=== PATIENT | male | born 1975 | race Caucasian/White ===

== ENCOUNTER 2019-05-11 16:58 | Emergency (ER) | payer BC ==
[2019-05-11 17:23] VITALS: BP 144/89
--- NOTE | 2019-05-11 18:18 | UC ---
Lower Extremity/Ankle HPI - HPI Summary HPI Summary: 44-year-old male comes in with a chief complaint of left foot pain. This started several days ago. Pain is primarily in the mid and distal foot on the dorsum along the first and second metatarsals and in the midfoot. Pain is worse with plantar flexion of the toes. No known trauma. Patient has recently started exercising again and has 2 new pair sneakers. In the last day or so he started to have some right hip pain but he feels like that because of the change in mechanics secondary to him favoring the pain of the left foot. He's taken some ibuprofen and some Tylenol but without much relief. More than half a year ago he injured his foot when he accidentally kicked a piece of furniture and he had similar pain at that time but that pain was gone within a couple of months. - History of Current Complaint Chief Complaint: UCLowerExtremity Stated Complaint: LEFT FOOT INJURY Time Seen by Provider: 05/11/19 17:11 Pain Intensity: 8 - Allergies/Home Medications Allergies/Adverse Reactions: Allergies Allergy/AdvReac Type Severity Reaction Status Date / Time No Known Allergies Allergy Verified 06/02/13 12:06 Home Medications: Home Medications Acetaminophen TAB* [Tylenol TAB*] 650 mg PO Q4H PRN 05/11/19 [History Confirmed 05/11/19] PMH/Surg Hx/FS Hx/Imm Hx Previously Healthy: Yes - Surgical History Surgical History: None - Family History Known Family History: Positive: Non-Contributory - Social History Alcohol Use: Occasionally Substance Use Type: None Smoking Status (MU): Never Smoked Tobacco Review of Systems All Other Systems Reviewed And Are Negative: Yes Constitutional: Positive: Negative Skin: Positive: Negative Eyes: Positive: Negative ENT: Positive: Negative Respiratory: Positive: Negative Cardiovascular: Positive: Negative Gastrointestinal: Positive: Negative Motor: Positive: Negative Neurovascular: Positive: Negative Musculoskeletal: Positive: Other: - SEE HPI Neurological: Positive: Negative Psychological: Positive: Negative Is Patient Immunocompromised?: No Physical Exam Triage Information Reviewed: Yes Appearance: Well-Appearing, No Pain Distress, Well-Nourished Vital Signs: Initial Vital Signs Temp 98 F 05/11/19 17:19 Pulse 69 05/11/19 17:19 Resp 18 05/11/19 17:19 BP 144/89 05/11/19 17:19 Pulse Ox 98 05/11/19 17:19 Vital Signs Reviewed: Yes Eye Exam: Normal Eyes: Positive: Conjunctiva Clear Neck: Positive: Supple Respiratory: Positive: No respiratory distress Musculoskeletal: Positive: Other: - Patient is tender to palpation on the dorsum of the left foot from the medial midfoot to the first MTP. The MTP is not swollen is flat erythematous and when I palpate the MTP from the plantar aspect there is no tenderness and it. There is no erythema in the skin of the foot. Ankle has full range of motion. Toes are full range of motion the patient gets the most pain when he plantar flexes his toes. Normal capillary refill no sensation deficit normal dorsalis pedis pulse. Neurological: Positive: Alert, Muscle Tone Normal Psychological: Positive: Age Appropriate Behavior Skin Exam: Normal Lower Extremity Course/Dx - Course Course Of Treatment: Patient Name: RAN ASHER Medical Record#: [id number] Ordering Physician: Regino Savage MD Acct.#: [id number] : 1975 Age: 44 Sex: M [facility]: [facility] Exam Date: 05/11/191713 ADM Status: REG ER Order Information: FOOT LEFT 3+ VWS Accession Number: [id number] CPT: 87191 Indication: First and second metatarsal pain following running in tight shoes. Pain since May 06, 2019 Comparison: No relevant prior exams available on the [facility] P[facility] for comparison. Technique: AP, lateral, and oblique views LEFT foot. REPORT AND IMPRESSION: #. Normal articular alignment. #. No fracture or stress reaction evident at the metatarsals or remainder of the foot. #. Mild first metatarsal phalangeal joint osteoarthritis. #. Moderate Achilles tendon insertion enthesophyte. #. Mild nonfocal soft tissue swelling. <Electronically signed by Jerson Mueller MD in OV> 05/11/19 1685 I discussed the x-rays with the patient. No fracture was seen. In clinic patient was placed and a postop shoe by nursing patient neurovascular intact after placement of the shoe. As the first MTP was not tender to palpation on the dorsum this does not appear to be gout at this time. Plan is anti- inflammatories ice and follow up with sports medicine. - Differential Dx/Diagnosis Provider Diagnosis: Left foot pain Discharge - Sign-Out/Discharge Documenting (check all that apply): Patient Departure All imaging exams completed and their final reports reviewed: Yes - Discharge Plan Condition: Stable Disposition: HOME Patient Education Materials: Foot Sprain (ED) Referrals: Romero Jhaveri MD [Primary Care Provider] - Additional Instructions: FOLLOW UP WITH SPORTS MEDICINE OR ORTHOPEDICS. USE [employer] SUCH SPENCO IN ALL YOUR SHOES. TAKE IBUPROFEN 600MG EVERY 6 HOURS NEEDED. GET REEVALUATED SOONER IF WORSE OR ANY QUESTIONS OR CONCERNS. - Billing Disposition and Condition Condition: STABLE Disposition: Home
== END 2019-05-11 18:29 | disposition home or self-care (01) ==
LOC: UCCORT 16:58
DX: M79.672 Pain in left foot (principal); M19.072 Primary osteoarthritis, left ankle and foot; M76.62 Achilles tendinitis, left leg
CPT/HCPCS: 99212; G0463

== ENCOUNTER 2023-05-07 13:04 | Observation (INO) ==
[~2023-05-07 13:04] MED LIST: Buffered Lidocaine 1% SYRIN 1 ml INTRADERM ONE; HYDROmorphone 1 MG/1 ML SYRINGE IV PRN; Lactated Ringers 1000 ml BAG 1,000 ML IV SCH; Naloxone 0.4 mg VIAL 0.4 mg/ml 1 ml VIAL IV PRN; Prochlorperazine 5 mg/ml 2 ml VIAL (10 mg) IV PRN
[2023-05-07] MEDS ORDERED: ceFAZolin 2 GM PREMIX 2 GM/50 ML BAG ONE (13:38)
[2023-05-07] MEDS ORDERED: fentaNYL 100 mcg/2 ml 50 MCG/ML VIAL ONE (13:43)
[2023-05-07] MEDS ORDERED: Midazolam 2 mg/2 ml VIAL 1 mg/ml 2 ml VIAL (2 mg) ONE (13:44)
[2023-05-07 13:52] LABS: Rapid COVID-19 Molecular Undetected (Undetected)
[2023-05-07] MEDS ORDERED: ROPIVACAINE 5 MG/ML 30 ML BTL (0.5%) ONE (14:36)
[2023-05-07] MEDS ORDERED: Ondansetron 4 mg VIAL 2 MG/ML 2 ml VIAL IV PRN (15:33)
[2023-05-07] MEDS ORDERED: Lactulose 30 ml UDC PO PRN (15:33)
[2023-05-07] MEDS ORDERED: Morphine 2 MG/ML SYRINGE IV PRN (15:33)
[2023-05-07] MEDS ORDERED: Ondansetron ODT 4 mg TAB 4 MG TAB PO PRN (15:33)
[2023-05-07] MEDS ORDERED: Magnesium Hydroxide LIQ 30 ML UDC PO PRN (15:33)
[2023-05-07] MEDS ORDERED: Ketamine HCL 50 mg/ml 10 ml VIAL (500 MG) ONE (16:34)
[2023-05-07] MEDS ORDERED: Propofol 10 MG/ML 20 ML BTL ONE (17:23)
[2023-05-07] MEDS: Lactated Ringers 1000 ml BAG 1,000 ML IV SCH (20:19)
[2023-05-07] MEDS: Magnesium Hydroxide LIQ 30 ML UDC PO SCH (20:20)
[2023-05-07] MEDS: ceFAZolin 1 GM ADVAN 1 GM in NS 0.9% 50 ML 50 ML IVPB SCH (23:44)
[2023-05-08] MEDS: Lactated Ringers 1000 ml BAG 1,000 ML IV SCH (06:06)
[2023-05-08 07:02] LABS: Hematocrit 40.5 % (38-53); Hemoglobin 14.1 g/dL (13.2-16.3); Mean Platelet Volume 7.7 fL (7.5-11.2); Platelet Count 193 10^3/uL (150-450)
[2023-05-08 07:16] LABS: Calcium 8.8 mg/dL (8.6-10.3); Creatinine, Serum 0.94 mg/dL (0.67-1.17); Potassium 3.9 mmol/L (3.5-5.0); eGFR CKD-EPI 99.4 (>60)
[2023-05-08] MEDS: ceFAZolin 1 GM ADVAN 1 GM in NS 0.9% 50 ML 50 ML IVPB SCH ×2 (07:36→15:07)
[2023-05-08] MEDS: Magnesium Hydroxide LIQ 30 ML UDC PO SCH (07:38)
[2023-05-08] MEDS ORDERED: COLCHICINE 0.6 MG PO SCH (09:00)
[2023-05-08] MEDS ORDERED: Vitamin THERAPEUTIC TAB PO SCH (09:00)
[2023-05-08 14:09] VITALS: BP 120/85
[2023-05-08] MEDS ORDERED: ATORVASTATIN 10 MG PO SCH (21:00)
== END 2023-05-08 16:55 | disposition home or self-care (01) ==
LOC: INTOOBSV 13:04 → AA 13:04 → SSU 19:43
PROVIDERS: ADMIT Orthopaedic Surgery Adult Reconstructive Orthopaedic Surgery; ATTEND Orthopaedic Surgery Adult Reconstructive Orthopaedic Surgery